=== PATIENT | female | born 1970 | race Caucasian/White ===

== ENCOUNTER 2019-03-01 11:20 | Emergency (ER) | payer BC ==
[~2019-03-01] VITALS: Ht 170.2 cm; Wt 104.5 kg
[2019-03-01 11:27] VITALS: BP 135/65; TEMP 98.7
[2019-03-01 12:34] LABS: BASO # 0.1 (0.0-0.2); BASO % 0.6 % (0.0-2.0); EOS # 0.3 (0.0-0.7); EOS % 3.6 % (0-4.0); GRAN # 5.3 (1.4-6.5); GRAN % 56.8 % (42.2-75.2); HEMATOCRIT 40.4 % (37.0-47.0); HEMOGLOBIN 13.6 g/dl (12.5-16.0); LYMPH # 2.7 (1.2-3.4); LYMPH % 29.3 % (20.0-51.0); MEAN CELL VOLUME 94 fl (80.0-100.0); MEAN CORPUSCULAR HEMOGLOBIN 32 pg (27.0-31.0); MEAN CORPUSCULAR HGB CONC 34 g/dl (33.0-37.0); MEAN PLATELET VOLUME 8.3 fl (7.4-10.4); MONO # 0.9 (0.1-0.6); MONO % 9.3 % (1.7-9.3); PLATELET COUNT 349 K/mm3 (130-400); RED BLOOD COUNT 4.31 M/mm3 (4.10-5.30); REDCELL DISTRIBUTION WIDTH-CV 13.4 % (11.5-14.5)
[2019-03-01 12:41] LABS: ALBUMIN 3.8 gm/dL (3.5-5.0); BILIRUBIN,TOTAL 0.3 mg/dL (0.0-1.0); C-REACTIVE PROTEIN 2.8 mg/dL (0.0-0.9); CALCIUM 8.9 mg/dL (8.4-10.2); CREATININE, serum 0.64 (0.52-1.25); POTASSIUM 4.2 mmol/L (3.4-5.0); TOTAL PROTEIN 7.1 gm/dL (6.4-8.2)
[2019-03-01 13:16] LABS: ERYTHROCYTE SEDIMENTATION RATE 18 mm/hr (0-20)
[2019-03-01] MEDS ORDERED: DILAUDID 2MG TAB2 MG PO (14:00)
[2019-03-01 14:14] VITALS: PULSE 93
== END 2019-03-01 14:14 | disposition home or self-care (01) ==
LOC: COL.ER 11:20
PROVIDERS: Emergency Medicine
DX: L97.919 Non-pressure chronic ulcer of unspecified part of right lower leg with unspecified severity (principal)
CPT/HCPCS: J1170; J1885

== ENCOUNTER 2019-03-08 14:42 | Inpatient (IN) | payer BC ==
[~2019-03-08] VITALS: Ht 170.2 cm; Wt 111.0 kg
[~2019-03-08 14:42] MED LIST: DILAUDID 2MG TAB2 MG PO
[2019-03-08 16:12] LABS: BASO # 0.1 (0.0-0.2); BASO % 0.4 % (0.0-2.0); EOS # 0.4 (0.0-0.7); EOS % 2.8 % (0-4.0); GRAN % 61.7 % (42.2-75.2); HEMATOCRIT 41.1 % (37.0-47.0); HEMOGLOBIN 13.7 g/dl (12.5-16.0); LYMPH # 3.5 (1.2-3.4); LYMPH % 27.3 % (20.0-51.0); MEAN CELL VOLUME 94 fl (80.0-100.0); MEAN CORPUSCULAR HEMOGLOBIN 31 pg (27.0-31.0); MEAN CORPUSCULAR HGB CONC 33 g/dl (33.0-37.0); MEAN PLATELET VOLUME 8.4 fl (7.4-10.4); MONO % 7.5 % (1.7-9.3); PLATELET COUNT 393 K/mm3 (130-400); RED BLOOD COUNT 4.37 M/mm3 (4.10-5.30); REDCELL DISTRIBUTION WIDTH-CV 13.2 % (11.5-14.5)
[2019-03-08 17:29] LABS: ALBUMIN 4.1 gm/dL (3.5-5.0); BILIRUBIN,TOTAL 0.3 mg/dL (0.0-1.0); C-REACTIVE PROTEIN 2.7 mg/dL (0.0-0.9); CALCIUM 9.1 mg/dL (8.4-10.2); CREATININE, serum 0.64 (0.52-1.25); POTASSIUM 4.2 mmol/L (3.4-5.0); TOTAL PROTEIN 7.6 gm/dL (6.4-8.2)
--- NOTE | 2019-03-08 17:54 | NUR ---
Vancomycin Initial Dosing Pharmacy Note Ordering provider: Jorje Andres MD Indication/duration: skin/soft tissue infection, 7 days Relevant comorbidities: h/o recent vein procedure LABS: SCr 0.64, CrCl~113, GFR 99 Recommendation: Will continue Vancomycin 1 gm IV q8h. Pharmacy will check Vancomycin trough on 03/10/19 and continue to monitor. Loading dose: 1 grams Maintenance dose: 1 gram every 8 hours Trough goal: 10-15 ug/mL
[2019-03-08 18:05] VITALS: PULSE 79; TEMP 98.1
[2019-03-08] MEDS ORDERED: TYLENOL 8 HR PO (19:02)
[2019-03-08] MEDS ORDERED: PERCOCET 325 MG1 TAB PO (19:02)
[2019-03-08] MEDS ORDERED: IBU800 M1 PO (19:03)
[2019-03-08] MEDS ORDERED: PRIL40 PO (19:03)
--- NOTE | 2019-03-08 19:35 | NUR ---
Pt. sitting up in bed at this time. Pt. is A&O3, assessment complete. INT to rt. hand patent. Pt. reported pain at a 8 on pain scale, gave pain meds. Pt. denies needs, call light within reach.
[2019-03-08 19:42] VITALS: BP 137/80; PULSE 81; TEMP 97.7
[2019-03-08 23:11] VITALS: BP 143/80; PULSE 86; TEMP 98
[2019-03-09] VITALS (12 sets, daily range): BP systolic 98–136; BP diastolic 56–77; PULSE 78–95; TEMP 97.9–98.5
[2019-03-09 07:23] LABS: CALCIUM 8.6 mg/dL (8.4-10.2); CREATININE, serum 0.68 (0.52-1.25)
[2019-03-09 07:28] LABS: BASO % 0.4 % (0.0-2.0); EOS # 0.4 (0.0-0.7); EOS % 3.7 % (0-4.0); GRAN # 6.1 (1.4-6.5); GRAN % 62.2 % (42.2-75.2); HEMATOCRIT 37.5 % (37.0-47.0); HEMOGLOBIN 12.3 g/dl (12.5-16.0); LYMPH # 2.5 (1.2-3.4); LYMPH % 25.9 % (20.0-51.0); MEAN CELL VOLUME 95 fl (80.0-100.0); MEAN CORPUSCULAR HEMOGLOBIN 31 pg (27.0-31.0); MEAN CORPUSCULAR HGB CONC 33 g/dl (33.0-37.0); MEAN PLATELET VOLUME 8.5 fl (7.4-10.4); MONO # 0.7 (0.1-0.6); MONO % 7.5 % (1.7-9.3); PLATELET COUNT 358 K/mm3 (130-400); RED BLOOD COUNT 3.94 M/mm3 (4.10-5.30); REDCELL DISTRIBUTION WIDTH-CV 13.4 % (11.5-14.5)
[2019-03-09 07:29] LABS: PROTHROMBIN TIME 11.5 SECONDS (9.7-12.8)
--- NOTE | 2019-03-09 08:30 | NUR ---
Dr Barrios here to see patient, see orders.
--- NOTE | 2019-03-09 10:00 | NUR ---
Patient alert and oriented, answers questions appropriately. See assessment. RLE with edema, redness, necrotic areas noted. Pulses palpable to BLE. C/o 9/10 pain to RLE with activity, 6/10 at rest. FWB. No other c/o at this time.
--- NOTE | 2019-03-09 10:39 | NUR ---
Initial visit; Patient thanked Brine Tank Separator Operator for looking in on her and offering God's blessings.
--- NOTE | 2019-03-09 11:20 | NUR ---
Dr Alba here to see patient, see orders.
--- NOTE | 2019-03-09 11:30 | NUR ---
Extruder Operator Horizontal attended rounds with the team. Patient to have ultra sound ordered. SW met with patient to discuss discharge planning. Patient lives in [place] with her , Gopal (ph#[phone]). Patient sees Dr. Alex Callaway in [place] for primary care. Patient states she travels over an hour to see Dr. Callaway and that this is her preference. Patient obtains medications from [facility] with no difficulties. Patient is employed at [employer] in [place]. Patient does not have any DME and is independent with ADLS. Patient does not have Advance Directives and is not interested in setting AD up at this time. Patient plans to return home upon discharge.
--- NOTE | 2019-03-09 11:36 | NUR ---
Final Finisher Forging Dies was contacted by BRUCE Robb who advised she put in a Social Service Consult as patient may require outpatient IV antibiotics upon discharge. SW to continue to follow.
--- NOTE | 2019-03-09 14:50 | NUR ---
Patient to surgery at this time, Adebayo POTTERY DECORATION DESIGNER given patient report.
--- NOTE | 2019-03-10 03:02 | NUR ---
Patient's pain not under control this shift. Noted to cry and state pain is 9/10 frequently. Patient getting 8mg morphine IV every 2 hours and 10/325mg of Percocet every 4 hours. Patient calls for the pain medication as often as she can have it. FARNAZ Hoyt notified about uncontrolled pain and ordered to try Tramadol 50mg once. Patient stated she fell asleep and was unsure if this was effective or not. Patient stated she was educated on day shift to "stay on top of the pain medication overnight" and has set an alarm to remind her to call for pain medication. States getting up to the commode makes the pain almost unbearable. Lowest scoring pain rating so far this shift has been 6/10. at bedside. IV antibiotics given per orders. IV to left hand infiltrated with NS flush at about 1999. New IV started in right wrist. Dressing to right calf and frances clean, dry, and intact. Attempted to apply ice, but patient stated the pressure on the wound was too intense. Will continue to monitor patient and attempt pain relief.
[2019-03-10 04:00] VITALS: BP 121/58; PULSE 62; TEMP 98
[2019-03-10 07:40] LABS: BASO % 0.4 % (0.0-2.0); EOS # 0.3 (0.0-0.7); EOS % 3.2 % (0-4.0); GRAN % 63.9 % (42.2-75.2); HEMATOCRIT 38.2 % (37.0-47.0); HEMOGLOBIN 12.5 g/dl (12.5-16.0); LYMPH # 2.2 (1.2-3.4); LYMPH % 23.7 % (20.0-51.0); MEAN CELL VOLUME 95 fl (80.0-100.0); MEAN CORPUSCULAR HEMOGLOBIN 31 pg (27.0-31.0); MEAN CORPUSCULAR HGB CONC 33 g/dl (33.0-37.0); MEAN PLATELET VOLUME 8.3 fl (7.4-10.4); MONO # 0.8 (0.1-0.6); MONO % 8.5 % (1.7-9.3); PLATELET COUNT 335 K/mm3 (130-400); RED BLOOD COUNT 4.02 M/mm3 (4.10-5.30); REDCELL DISTRIBUTION WIDTH-CV 13.2 % (11.5-14.5)
[2019-03-10 07:55] LABS: CALCIUM 8.7 mg/dL (8.4-10.2); CREATININE, serum 0.72 (0.52-1.25); POTASSIUM 4.1 mmol/L (3.4-5.0)
[2019-03-10 08:00] VITALS: BP 114/51; PULSE 93; TEMP 97.9
--- NOTE | 2019-03-10 08:00 | NUR ---
UPON ENTRY TO THE ROOM THIS MORNING THE PATIENT IS RESTING IN BED WITH HER RIGHT LEG ELEVATED ON TWO PILLOWS. PRESENT AT THE BEDSIDE. PATIENT IS A&OX4. VSS. BOWEL SOUNDS ACTIVE ALL FOUR QUADRANTS. PATIENT TOLERATING DIET WITHOUT ANY COMPLAINTS OF N/V. POSITIVE PEDAL PULSES EQUAL BILATERALLY. CAP REFILL <3 SECONDS. CMS INTACT. RLE DRESSED WITH GAUZE, KERLIX AND TAPE AND IS CD&I. 1+ PITTING-EDEMA TO RIGHT FOOT. INT TO RIGHT WRIST. CALL LIGHT WITHIN REACH. PATIENT DENIES ANY NEEDS AT THIS TIME. ICE PACKS IN PLACE TO RLE.
[2019-03-10 08:31] LABS: ERYTHROCYTE SEDIMENTATION RATE 20 mm/hr (0-20)
--- NOTE | 2019-03-10 09:50 | NUR ---
WOUND CARE CONSULT CALLED TO WOUND CARE CLINIC. NO ORDERS GIVEN AT THIS TIME.
--- NOTE | 2019-03-10 10:38 | NUR ---
Audio Visual Equipment Rental Clerk attended rounds with the team. Patient to continue pain medications and antibiotics. SW to continue to follow.
[2019-03-10 12:30] VITALS: BP 130/94; PULSE 88; TEMP 98.1
--- NOTE | 2019-03-10 13:46 | NUR ---
Assisted Shereen BARRERA with pateint care from 0630 to 1345. Patient in bed playing on phone. Call light within reach. Patient is alert and oriented x3.
[2019-03-10 15:09] VITALS: BP 111/63; PULSE 90; TEMP 98
--- NOTE | 2019-03-10 19:07 | NUR ---
BEDSIDE SHIFT REPORT GIVEN TO BRUCE CORTES.
[2019-03-10 20:05] VITALS: BP 107/52; PULSE 90; TEMP 97.8
[2019-03-11] VITALS (7 sets, daily range): BP systolic 100–131; BP diastolic 50–64; PULSE 79–104; TEMP 97.4–98.4
--- NOTE | 2019-03-11 05:58 | NUR ---
Patient continues to receive PO and IV pain medication frequently throughout the night. Pain appears to be a little more manageable for patient this shift. Dressing to right lower leg clean, dry, and intact. INT site to right wrist infiltrated and was noted to be swollen and red. New 22G started in left hand after one unsuccessful attempt. Patient continues to complain of discomfort when INT is touched or any medication is administered through it. This nurse pushes all medications very slow as patient states this helps with the discomfort. at bedside. Patient stands and pivots to the commode and can't bear weight d/t pain on the right leg. Will report off to day shift nurse.
[2019-03-11 07:20] LABS: BASO % 0.3 % (0.0-2.0); CALCIUM 8.4 mg/dL (8.4-10.2); CREATININE, serum 0.75 (0.52-1.25); EOS # 0.4 (0.0-0.7); EOS % 4.1 % (0-4.0); GRAN # 5.6 (1.4-6.5); GRAN % 58.5 % (42.2-75.2); HEMATOCRIT 35.1 % (37.0-47.0); HEMOGLOBIN 11.4 g/dl (12.5-16.0); LYMPH # 2.7 (1.2-3.4); LYMPH % 28.1 % (20.0-51.0); MEAN CELL VOLUME 96 fl (80.0-100.0); MEAN CORPUSCULAR HEMOGLOBIN 31 pg (27.0-31.0); MEAN CORPUSCULAR HGB CONC 33 g/dl (33.0-37.0); MONO # 0.8 (0.1-0.6); MONO % 8.7 % (1.7-9.3); PLATELET COUNT 302 K/mm3 (130-400); RED BLOOD COUNT 3.65 M/mm3 (4.10-5.30); REDCELL DISTRIBUTION WIDTH-CV 13.2 % (11.5-14.5)
--- NOTE | 2019-03-11 08:00 | NUR ---
SEE MORNING SHIFT ASSESSMENT.
--- NOTE | 2019-03-11 11:25 | NUR ---
Cook Cashier Food Prep attended rounds with the team. Patient states she is in significant pain when dressings are changed for her wound. SW to continue to follow.
--- NOTE | 2019-03-11 12:41 | NUR ---
DR. SCHROEDER CALLED AND MESSAGE LEFT FOR ID CONSULT.
--- NOTE | 2019-03-11 12:44 | NUR ---
WOUND CARE CLINIC CALLED AND NOTIFIED THAT THE HOSPITALIST WOULD LIKE FOR THE PATIENTS WOUND TO BE SEEN BY WOUND CARE BEFORE THE WEEKEND. VIRGINIE FLOWERS WILL BE BY TO SEE THE PATIENT THIS AFTERNOON.
--- NOTE | 2019-03-11 13:42 | NUR ---
Assisted Shereen BARRERA with medications from 0730 to 1330. Patient is currently getting PICC line placed. Gave report to Shereen BARRERA.
--- NOTE | 2019-03-11 20:00 | NUR ---
PATIENTS RLE DRESSING REMOVED AND CLEANED WITH STERILE WATER AND GAUZE. RIGHT LEFT LEG RE-DRESSED WITH VASELINE, VASELINE GAUZE, 4X4'S, KERLIX, SOFT ROLL AND COBAN. PATIENT GIVEN PRN IV DILAUDID PRIOR TO DRESSING CHANGE. PATIENT TOLERATED WELL. REPORT GIVEN TO BRUCE MCINTOSH.
[2019-03-12] VITALS (7 sets, daily range): BP systolic 103–130; BP diastolic 54–74; PULSE 81–98; TEMP 97.7–98.3
[2019-03-12 06:22] LABS: BASO % 0.2 % (0.0-2.0); GRAN # 7.1 (1.4-6.5); GRAN % 76.3 % (42.2-75.2); HEMOGLOBIN 11.9 g/dl (12.5-16.0); LYMPH # 1.7 (1.2-3.4); LYMPH % 18.1 % (20.0-51.0); MEAN CELL VOLUME 94 fl (80.0-100.0); MEAN CORPUSCULAR HEMOGLOBIN 32 pg (27.0-31.0); MEAN CORPUSCULAR HGB CONC 33 g/dl (33.0-37.0); MEAN PLATELET VOLUME 8.7 fl (7.4-10.4); MONO # 0.5 (0.1-0.6); MONO % 5.1 % (1.7-9.3); PLATELET COUNT 312 K/mm3 (130-400); RED BLOOD COUNT 3.78 M/mm3 (4.10-5.30); REDCELL DISTRIBUTION WIDTH-CV 12.9 % (11.5-14.5)
[2019-03-12 06:34] LABS: HEMATOCRIT 35.7 % (37.0-47.0)
[2019-03-12 06:38] LABS: CALCIUM 9.1 mg/dL (8.4-10.2); CREATININE, serum 0.62 (0.52-1.25); POTASSIUM 4.5 mmol/L (3.4-5.0)
--- NOTE | 2019-03-12 07:53 | NUR ---
Pt is awake and A/Ox4, sitting up in bed with . She states her pain to her right lower leg is a 7-8/10. Pt given PRN dilaudid upon request. PICC line to right upper arm is free of complications. Dressing to RLE is free of complications. Pt had previously walked in hallways with . Pt denies any other needs, will monitor.
--- NOTE | 2019-03-12 10:30 | NUR ---
Pt stating pain to RLE is not controlled. Requested PRN percocet for 10/10 pain. Attempted to give, not able to due to it would put pt over tylenol limit in 24 hrs. Given additional dose of PRN dilaudid. Pt crying in pain. Dr. Tran notified and order for Dilaudid ATHLETIC TRAINING INTERNSHIP obtained. Verified with AGUSTIN Turner.
--- NOTE | 2019-03-12 13:49 | NUR ---
Dressing removed by Dr. Lay. Wound cleaned with saline. New dressing applied: vaseline dressing + gauze + soft wrap + nicolas bandage applied.
--- NOTE | 2019-03-12 15:40 | NUR ---
Pt reports pain better controlled after dilaudid NOISE ABATEMENT ENGINEER started. Pt resting in bed. Denies any other needs.
--- NOTE | 2019-03-12 17:18 | NUR ---
Pt given PRN oxycodone upon request for 10/13 RLE pain. Pt also requested PRN tylenol for headache. Report given to BRUCE Villanueva.
[2019-03-13 04:00] VITALS: BP 108/59; PULSE 73; TEMP 98.2
--- NOTE | 2019-03-13 04:42 | NUR ---
PT SLEEPING OFF AND ON. PRN OXYCODONE FOR PAIN APPROX. Q 4 HOURS. DRESSING/NIVIA APPEARS CD&I. PT CLAIMS SHE IS ALWAYS IN PAIN.
--- NOTE | 2019-03-13 06:19 | NUR ---
PT USING STAMP CLERK FAIRLY FREQUENTLY DURING THE NIGHT. PT TAKING OXYCODONE Q 6 HRS. DRESSING/NIVIA TO RLE APPEARS CD&I.
[2019-03-13 06:51] LABS: BASO # 0.1 (0.0-0.2); BASO % 0.3 % (0.0-2.0); EOS # 0.1 (0.0-0.7); EOS % 0.5 % (0-4.0); HEMOGLOBIN 11.5 g/dl (12.5-16.0); LYMPH # 3.9 (1.2-3.4); LYMPH % 25.4 % (20.0-51.0); MEAN CELL VOLUME 96 fl (80.0-100.0); MEAN CORPUSCULAR HEMOGLOBIN 32 pg (27.0-31.0); MEAN CORPUSCULAR HGB CONC 33 g/dl (33.0-37.0); MEAN PLATELET VOLUME 8.9 fl (7.4-10.4); MONO # 1.1 (0.1-0.6); MONO % 7.3 % (1.7-9.3); PLATELET COUNT 330 K/mm3 (130-400); RED BLOOD COUNT 3.65 M/mm3 (4.10-5.30); REDCELL DISTRIBUTION WIDTH-CV 13.3 % (11.5-14.5)
[2019-03-13 07:03] LABS: ALBUMIN 3.7 gm/dL (3.5-5.0); BILIRUBIN,TOTAL 0.2 mg/dL (0.0-1.0); CALCIUM 9.1 mg/dL (8.4-10.2); CREATININE, serum 0.7 (0.52-1.25); POTASSIUM 3.8 mmol/L (3.4-5.0); TOTAL PROTEIN 6.8 gm/dL (6.4-8.2)
[2019-03-13 07:23] VITALS: BP 103/54; PULSE 85; TEMP 98.6
--- NOTE | 2019-03-13 10:11 | NUR ---
Vancomycin Follow-up Pharmacy Note Current regimen: Vancomcyin 1 gm IV [id number] 03/11/19 Vancomycin trough: 15.15 (03/10/19) Adjustments: Will restart Vancomcyin 1 gm IV q8h. Pharmacy will recheck Vancomycin trough on 03/14/19 and continue to monitor.
[2019-03-13 11:33] VITALS: BP 115/65; PULSE 84; TEMP 98.5
--- NOTE | 2019-03-13 12:30 | NUR ---
Patients dressing has been changed. Dr Tran seen the wounds and documented them. Patient has a softball sized open area to the top of her frances, with several blisters surrounding. The large wound is open and oozing orange/yellow drianage. She also has a golfball size wound to her inner right calf, it is also bilstering and oozing orangish clear drainage. She has a few blisters that are still closed but raised. Wound dressed with vaseline, xeroform gauze, 4x4's, kerlix and acewrap placed to wounds. Wounds were cleaned with saline before placing dressing to them. Patients helped with removing the dressing. Patient has been trying to have a bowel movement with very little results. No complaints of nausea. No other changes at this time. Call light within reach.
[2019-03-13 15:50] VITALS: BP 126/74; PULSE 85; TEMP 98.2
--- NOTE | 2019-03-13 19:00 | NUR ---
Patient has been doing well today. She had a few times where her pain got hard to controll but otherwise has been doing ok. Her CADDY/CADDIE SUPERVISOR is on demand dose only now and she understands that. She walked with PT this afternoon and did very well with them. Her continues to be at bedside. No other changes at this time. Call light within reach.
--- NOTE | 2019-03-13 20:01 | NUR ---
Pt. sitting up on commode at this time. Pt. is A&OX3, assessment complete. PICC to rt. upper arm patent, IV fluids infusing per orders. Pt. also has a INFORMATION SYSTEMS SUPERVISOR running per orders. Dressing to rt. lower leg CDI. Pt. reported pain at an 8 on pain scale, gave pain meds per orders. Pt. denies further needs, call light within reach.
[2019-03-13 20:30] VITALS: BP 118/64; PULSE 95; TEMP 98.1
[2019-03-13 23:52] VITALS: BP 102/55; PULSE 80; TEMP 97.9
[2019-03-14] VITALS (7 sets, daily range): BP systolic 94–130; BP diastolic 55–85; PULSE 76–94; TEMP 97.7–98.2
[2019-03-14 06:48] LABS: BASO # 0.1 (0.0-0.2); BASO % 0.3 % (0.0-2.0); EOS % 0.2 % (0-4.0); GRAN # 12.5 (1.4-6.5); GRAN % 72.8 % (42.2-75.2); HEMATOCRIT 34.4 % (37.0-47.0); HEMOGLOBIN 11.2 g/dl (12.5-16.0); LYMPH # 3.2 (1.2-3.4); LYMPH % 18.7 % (20.0-51.0); MEAN CELL VOLUME 96 fl (80.0-100.0); MEAN CORPUSCULAR HEMOGLOBIN 31 pg (27.0-31.0); MEAN CORPUSCULAR HGB CONC 33 g/dl (33.0-37.0); MONO # 1.3 (0.1-0.6); MONO % 7.7 % (1.7-9.3); PLATELET COUNT 309 K/mm3 (130-400); RED BLOOD COUNT 3.58 M/mm3 (4.10-5.30); REDCELL DISTRIBUTION WIDTH-CV 13.2 % (11.5-14.5)
[2019-03-14 06:57] LABS: CALCIUM 8.8 mg/dL (8.4-10.2); CREATININE, serum 0.68 (0.52-1.25)
--- NOTE | 2019-03-14 08:00 | NUR ---
PATIENT SITTING UP IN BED WITH PRESENT AT THE BEDSIDE. PATIENT IS A&OX4. VSS. BOWEL SOUNDS ACTIVE ALL FOUR QUADRANTS. PATIENT TOLERATING DIET WITHOUT ANY COMPLAINTS OF N/V. POSITIVE PEDAL PULSES EQUAL BILATERALLY. DRAINAGE PRESENT ON RIGHT LOWER EXTREMITY DRESSING. PICC LINE IN PLACE. APPLICATION DEVELOPMENT DIRECTOR INFUSING TO PICC LINE. SEE MORNING SHIFT ASSESSMENT. CALL LIGHT WITHIN REACH. PATIENT DENIES ANY OTHER NEEDS AT THIS TIME.
--- NOTE | 2019-03-14 11:07 | NUR ---
MEHRAN met with the patient and the patient's , Gopal, to review discharge plan and to discuss PT's recommendation of needing a walker for home and a wheelchair for in the community. MEHRAN explained how insurance only covers for one or the other. The patient reports that she would prefer to private pay for the walker and bill insurance for a wheelchair. MEHRAN presented and explained the Patient Choice Form for DME to the patient. The patient chose [facility]. Patient Choice Form signed by the patient and she was provided a copy. MEHRAN contacted and faxed the wheelchair order to Angelina at [facility]. MEHRAN to continue to follow.
--- NOTE | 2019-03-14 15:15 | NUR ---
Vishal, with [facility], came to deliver the wheelchair. Vishal informed MEHRAN that the patient and her have now changed their minds and do not want to move forward with getting the wheelchair at this time. They would like to go to their follow up appointments and then decide if they want to get the wheelchair. MEHRAN to continue to follow.
--- NOTE | 2019-03-14 17:05 | NUR ---
PATIENTS RIGHT LEG DRESSING REMOVED. WOUND CLEANSED WITH STERILE WATER AND GAUZE. PETROLEUM JELLY APPLIED TO WOUND BED AND COVERED WITH VASELINE GAUZE, 4X4 GAUZE, KERLIX, SOFT ROLL AND COBAN. PATIENT TOLERATED WELL.
--- NOTE | 2019-03-14 19:25 | NUR ---
REPORT GIVEN TO BRUCE LYONS.
--- NOTE | 2019-03-14 20:49 | NUR ---
ASSESSMENT COMPLETE. DRSG RLE CDI. DENIES NEEDS AT THIS TIME.
[2019-03-15 03:52] VITALS: BP 92/48; PULSE 78; TEMP 97.8
[2019-03-15 06:53] LABS: CALCIUM 8.5 mg/dL (8.4-10.2); CREATININE, serum 0.69 (0.52-1.25); POTASSIUM 4.2 mmol/L (3.4-5.0)
[2019-03-15 07:13] LABS: BASO # 0.1 (0.0-0.2); BASO % 0.4 % (0.0-2.0); EOS # 0.1 (0.0-0.7); EOS % 0.4 % (0-4.0); GRAN % 64.5 % (42.2-75.2); HEMOGLOBIN 10.5 g/dl (12.5-16.0); LYMPH # 3.4 (1.2-3.4); LYMPH % 24.6 % (20.0-51.0); MEAN CELL VOLUME 98 fl (80.0-100.0); MEAN CORPUSCULAR HEMOGLOBIN 32 pg (27.0-31.0); MEAN CORPUSCULAR HGB CONC 32 g/dl (33.0-37.0); MEAN PLATELET VOLUME 9.1 fl (7.4-10.4); MONO # 1.3 (0.1-0.6); MONO % 9.7 % (1.7-9.3); PLATELET COUNT 296 K/mm3 (130-400); RED BLOOD COUNT 3.33 M/mm3 (4.10-5.30); REDCELL DISTRIBUTION WIDTH-CV 13.4 % (11.5-14.5)
[2019-03-15 07:16] LABS: HEMATOCRIT 32.5 % (37.0-47.0)
[2019-03-15 07:27] VITALS: BP 120/66; PULSE 84; TEMP 97.6
[2019-03-15] MEDS ORDERED: DIFLUCAN150 MG PO (07:34)
--- NOTE | 2019-03-15 08:00 | NUR ---
PATIENT IS RESTING IN BED THIS MORNING WITH HER PRESENT AT THE BEDSIDE. PATIENT IS A&OX4. VSS. BOWEL SOUNDS ACTIVE ALL FOUR QUADRANTS. PATIENT TOLERATING DIET WITHOUT ANY COMPLAINTS OF N/V. POSITIVE PEDAL PULSES EQUAL BILATERALLY. CAP REFILL <3 SECONDS. CMS INTACT. PICC LINE TO RUE. CALL LIGHT WITHIN REACH. PATIENT DENIES ANY NEEDS AT THIS TIME.
[2019-03-15] MEDS ORDERED: PREDNISONE20 MG PO (09:43)
[2019-03-15] MEDS ORDERED: NICODERM C21 MG/PATC TD (09:52)
[2019-03-15] MEDS ORDERED: NEURONTIN300 MG/CAP PO (09:57)
[2019-03-15] MEDS ORDERED: SENNA-S 50 MG-81 TAB PO (09:58)
[2019-03-15] MEDS ORDERED: OXYCONTIN60 MG PO (09:58)
[2019-03-15] MEDS ORDERED: MIRALAX238G PO (09:58)
--- NOTE | 2019-03-15 10:56 | NUR ---
The patient is to discharge back home with her today, 03/15. MEHRAN followed back up with the patient and her about the wheelchair. The patient states that the wheelchair was too expensive with insurance and would now prefer the FWW. The patient requested that MEHRAN contact [facility] [facility] and [facility] to inquire their prices. MEHRAN contacted all three pharmacies. [facility] [facility] do not have FWWs and [facility] does not bill insurance. MEHRAN informed the patient and her of this. The patient reports that she would just like to pursue with getting the walker at [facility]. MEHRAN contacted and faxed the FWW order to Angelina at [facility]. The patient was also interested in applying for a handicap accessible placard. NELLY Hale, completed form and MEHRAN provided form to the patient. No additional needs at this time.
[2019-03-15 12:00] VITALS: BP 119/57; PULSE 91
[2019-03-15] MEDS ORDERED: VFEND 200MG200 MG PO (14:36)
--- NOTE | 2019-03-15 14:37 | NUR ---
Vishal, with [facility], delivered the FWW to the patient's room.
--- NOTE | 2019-03-15 18:00 | NUR ---
RLE DRESSING REMOVED. WOUND BED CLEANSED WITH STERILE WATER AND GAUZE. PETROLEUM JELLY APPLIED TO WOUND AND COVERED WITH VASELINE GAUZE, 4X4 GAUZE, KERLIX, SOFT ROLL AND COBAN. PATIENT TOLERATED WELL. DISCHARGE INSTRUCTIONS REVIEWED WITH PATIENT AND . ALL QUESTIONS ANSWERED. PATIENT PERSONAL BELONGINGS GATHERED.
--- NOTE | 2019-03-15 19:00 | NUR ---
PATIENT TAKEN TO PERSONAL VEHICLE VIA WHEELCHAIR BY SURGICAL STAFF. PATIENT DISCHARGED.
[2019-03-18 02:14] LABS: ANA SCREEN with REFLEX Negative
== END 2019-03-15 19:00 | disposition home or self-care (01) | DRG 580 ==
LOC: COL.ER 14:42 → SURG 16:26
PROVIDERS: Emergency Medicine; Family Medicine; Nurse Practitioner Family; Physician Assistant; Surgery; ADMIT Internal Medicine
PROC: 0JDN0ZZ Extraction of Right Lower Leg Subcutaneous Tissue and Fascia, Open Approach (ICD-10-PCS; principal; 2019-03-09 15:00)
PROC: 02HV33Z Insertion of Infusion Device into Superior Vena Cava, Percutaneous Approach (ICD-10-PCS; 2019-03-11)
DX: L88 Pyoderma gangrenosum (principal); I87.311 Chronic venous hypertension (idiopathic) with ulcer of right lower extremity; I82.811 Embolism and thrombosis of superficial veins of right lower extremity; L03.115 Cellulitis of right lower limb; M19.90 Unspecified osteoarthritis, unspecified site; D72.829 Elevated white blood cell count, unspecified; F17.210 Nicotine dependence, cigarettes, uncomplicated; Z90.711 Acquired absence of uterus with remaining cervical stump; Z88.0 Allergy status to penicillin; Z88.1 Allergy status to other antibiotic agents
CPT/HCPCS: 99222-AI; 99232-AI; 99233-AI; 99239; C1751; C1892; J1170; J1450; J1644; J1885; J2250; J2270; J2405; J2704; J3010; J3370; J7030; J7050; J7070; J7120; J7512

== ENCOUNTER → 2019-07-21 | Outpatient (CLI) | payer BC ==
[~2019-07-21] MED LIST changes: +DIFLUCAN150 MG PO; +IBU800 M1 PO; +MIRALAX238G PO; +NEURONTIN300 MG/CAP PO; +NICODERM C21 MG/PATC TD; +OXYCONTIN60 MG PO; +PERCOCET 325 MG1 TAB PO; +PREDNISONE20 MG PO; +PRIL40 PO; +SENNA-S 50 MG-81 TAB PO; +TYLENOL 8 HR PO; +VFEND 200MG200 MG PO
== END ==
LOC: COL.RAD 09:16
DX: C84.A0 Cutaneous T-cell lymphoma, unspecified, unspecified site (principal)

== ENCOUNTER → 2019-09-22 | Outpatient (CLI) | payer BC | LOC: COL.RAD 08:06 | DX: Q07.00 Arnold-Chiari syndrome without spina bifida or hydrocephalus (principal); M51.27 Other intervertebral disc displacement, lumbosacral region; M50.90 Cervical disc disorder, unspecified, unspecified cervical region; C85.90 Non-Hodgkin lymphoma, unspecified, unspecified site ==

== ENCOUNTER → 2019-12-16 | Outpatient (CLI) | payer BC | LOC: COL.VAS | DX: C86.6 Primary cutaneous CD30-positive T-cell proliferations (principal); I82.811 Embolism and thrombosis of superficial veins of right lower extremity; I82.90 Acute embolism and thrombosis of unspecified vein ==

== ENCOUNTER → 2019-12-27 | Outpatient (CLI) | payer BC | LOC: COL.RAD 07:52 | DX: C84.45 Peripheral T-cell lymphoma, not elsewhere classified, lymph nodes of inguinal region and lower limb (principal); M62.89 Other specified disorders of muscle | CPT/HCPCS: Q9967 ==

== ENCOUNTER 2020-01-03 15:24 | Emergency (ER) | payer BC ==
[~2020-01-03] VITALS: Ht 170.2 cm; Wt 108.6 kg
[2020-01-03 16:53] LABS: BASO # 0.1 (0.0-0.2); BASO % 0.4 % (0.0-2.0); EOS # 0.2 (0.0-0.7); EOS % 1.2 % (0-4.0); GRAN # 10.4 (1.4-6.5); GRAN % 74.4 % (42.2-75.2); HEMATOCRIT 43.5 % (37.0-47.0); HEMOGLOBIN 14.2 g/dl (12.5-16.0); LYMPH # 2.5 (1.2-3.4); LYMPH % 17.5 % (20.0-51.0); MEAN CELL VOLUME 88 fl (80.0-100.0); MEAN CORPUSCULAR HEMOGLOBIN 29 pg (27.0-31.0); MEAN CORPUSCULAR HGB CONC 33 g/dl (33.0-37.0); MONO # 0.9 (0.1-0.6); MONO % 6.1 % (1.7-9.3); PLATELET COUNT 444 K/mm3 (130-400); RED BLOOD COUNT 4.95 M/mm3 (4.10-5.30); REDCELL DISTRIBUTION WIDTH-CV 13.3 % (11.5-14.5)
[2020-01-03 16:58] LABS: INR 1.3 (0.8-3.0); PROTHROMBIN TIME 14.6 SECONDS (9.7-12.8)
[2020-01-03 17:05] LABS: ALBUMIN 4.4 gm/dL (3.5-5.0); BILIRUBIN,TOTAL 0.6 mg/dL (0.0-1.0); CALCIUM 9.3 mg/dL (8.4-10.2); CREATININE, serum 0.53 (0.52-1.25); POTASSIUM 3.6 mmol/L (3.4-5.0); TOTAL PROTEIN 7.9 gm/dL (6.4-8.2)
[2020-01-03 17:56] VITALS: BP 120/74; PULSE 80; TEMP 98.4
== END 2020-01-03 17:58 | disposition home or self-care (01) ==
LOC: COL.ER 15:24
PROVIDERS: Emergency Medicine
DX: M54.5 Low back pain (principal); M62.89 Other specified disorders of muscle; F17.210 Nicotine dependence, cigarettes, uncomplicated; Z85.72 Personal history of non-Hodgkin lymphomas; Z88.0 Allergy status to penicillin; Z88.1 Allergy status to other antibiotic agents; Z79.52 Long term (current) use of systemic steroids
CPT/HCPCS: J2270

== ENCOUNTER 2020-01-11 08:04 | Observation (INO) | payer BC ==
[~2020-01-11] VITALS: Ht 170.2 cm; Wt 108.5 kg
[~2020-01-11 08:04] MED LIST changes: +ASPIRIN 32325 MG/TA1 PO; +DILAUDID8 M1 PO; +MIRALAX PA17 GM/Dose PO; +MOTRIN 600600 MG/TAB PO; +MS CONTIN 660 MG/TAB PO; +MS CONTIN100 MG PO; +PROTONIX 40MG T40 MG PO
[2020-01-11 08:29] VITALS: PULSE 103
[2020-01-11 10:15] VITALS: BP 116/84; PULSE 93
--- NOTE | 2020-01-11 11:40 | NUR ---
CALLED HOUSE FOR AN UPDATE ON PT PLACEMENT. NO ROOM YET
--- NOTE | 2020-01-11 12:17 | NUR ---
pt still in rad holding. room is being cleaned
[2020-01-11 13:14] VITALS: BP 130/76; PULSE 88; TEMP 98.6
--- NOTE | 2020-01-11 13:47 | NUR ---
[id number] was taken up to room 357 and report given to Judith.
[2020-01-11 16:26] VITALS: BP 124/55; PULSE 87; TEMP 99.1
[2020-01-11 16:39] LABS: BASO # 0.1 (0.0-0.2); BASO % 0.3 % (0.0-2.0); EOS # 0.2 (0.0-0.7); EOS % 1.1 % (0-4.0); GRAN # 11.5 (1.4-6.5); GRAN % 73.8 % (42.2-75.2); HEMATOCRIT 42.2 % (37.0-47.0); HEMOGLOBIN 13.5 g/dl (12.5-16.0); LYMPH # 2.6 (1.2-3.4); MEAN CELL VOLUME 88 fl (80.0-100.0); MEAN CORPUSCULAR HEMOGLOBIN 28 pg (27.0-31.0); MEAN CORPUSCULAR HGB CONC 32 g/dl (33.0-37.0); MEAN PLATELET VOLUME 8.9 fl (7.4-10.4); MONO # 1.2 (0.1-0.6); MONO % 7.4 % (1.7-9.3); PLATELET COUNT 417 K/mm3 (130-400); RED BLOOD COUNT 4.82 M/mm3 (4.10-5.30); REDCELL DISTRIBUTION WIDTH-CV 13.6 % (11.5-14.5)
[2020-01-11 16:48] LABS: BILIRUBIN,TOTAL 0.7 mg/dL (0.0-1.0); CALCIUM 9.1 mg/dL (8.4-10.2); CREATININE, serum 0.53 (0.52-1.25); POTASSIUM 3.7 mmol/L (3.4-5.0); TOTAL PROTEIN 7.3 gm/dL (6.4-8.2)
--- NOTE | 2020-01-11 18:19 | NUR ---
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 Pharmacy will continue to monitor and check a Vancomycin trough on 01/13/20. Loading dose: 2 grams Maintenance dose: 1.25 grams every 8 hours Trough goal: 15-20 ug/mL
[2020-01-11 18:55] VITALS: BP 111/45; PULSE 96; TEMP 99.1
--- NOTE | 2020-01-11 20:00 | NUR ---
Assessment complete. Patient is writhing in excrutiating pain of her lower back that radiates to right hip. PRN morphine 150 mg administered. Patient states she normally takes 160 mg at home. She is alert and oriented; is at bedside. Lower back biopsy site is covered with bandaid and is not draining. Will continue to monitor pain throughout the night.
--- NOTE | 2020-01-11 20:47 | NUR ---
Patient was transferred from Radiology after purulent drainage was noted on her paraspinal mass biopsy. iv placed on right hand by Seema. blood culture pending patient complained of severe chronic pain. WBC 15.5. The plan is to give abx this night.
[2020-01-11 23:21] VITALS: BP 100/54; PULSE 69; TEMP 98.7
[2020-01-12 03:02] VITALS: BP 112/62; PULSE 69; TEMP 98.1
[2020-01-12 07:14] VITALS: BP 116/59; PULSE 77; TEMP 98.1
--- NOTE | 2020-01-12 09:50 | NUR ---
MEHRAN met with the patient to discuss discharge plan. The patient lives in [place] with her , Jose C (ph#[phone]). She reports independence with ADLs and has a walker. The patient's PCP is Dr. Alex Callaway in [place] and she receives her medications at [facility]. She reports no difficulties obtaining her meds. She states that if she cannot go back to work, then she will lose her insurance at the end of February. MEHRAN discussed applying for Medicaid. The patient was interested in this. MEHRAN notified Financial Counselor, Karla. MEHRAN presented the Release of Information Forms for Medicaid to the patient. The patient signed the forms and MEHRAN emailed them back to Financial Counseling. The patient does not have a DPOA-HC and she was not interested in completing a DPOA-HC at this time. The patient plans to return home with her upon discharge. The patient informed MEHRAN of some concerns she has during stay here. MEHRAN notified her RN and attempted to contact [facility] risk management. MEHRAN left Emma a voicemail. No additional needs at this time.
--- NOTE | 2020-01-12 10:14 | NUR ---
Initial visit; Patient thanked Turning And Beading Machine Operator for stopping though declined spiritual care.
[2020-01-12 12:00] VITALS: BP 94/51; BP 94/53; PULSE 81; TEMP 97.9
--- NOTE | 2020-01-12 13:56 | NUR ---
Primary nurse was assisted with [id number] patient care by [employer] student Angeline Bernstein and [employer] instructor Rachelle Choi RN-.
[2020-01-12] MEDS ORDERED: DOXYCYCLINE HY100 MG PO (14:19)
--- NOTE | 2020-01-12 14:33 | NUR ---
Patient recieved discharge education, followup appt, discharge summarry, new order for Amoxicillin and Clavulanate. INT discontinued. Patient discharge home with .
[2020-01-12 15:22] VITALS: BP 104/53; PULSE 76; TEMP 98.2
--- NOTE | 2020-01-12 16:47 | NUR ---
patient was discharged home with Doxycycline 100mg BID. INT discontinued. patient discharged with information on followup appointment. patient discharged with .
== END 2020-01-12 16:40 | disposition home or self-care (01) ==
LOC: COL.RAD 08:04 → MEDICAL 08:04 → COL.RAD 08:15 → MEDICAL 13:15
PROVIDERS: ADMIT Student in an Organized Health Care Education/Training Program
DX: D47.Z9 Other specified neoplasms of uncertain behavior of lymphoid, hematopoietic and related tissue (principal); M87.9 Osteonecrosis, unspecified; G89.29 Other chronic pain; M54.5 Low back pain; M79.7 Fibromyalgia; M54.30 Sciatica, unspecified side; Z92.21 Personal history of antineoplastic chemotherapy; Z85.72 Personal history of non-Hodgkin lymphomas; Z92.3 Personal history of irradiation
CPT/HCPCS: G0378; J2270; J3370; J7040; J7050

== ENCOUNTER 2020-02-02 12:06 | Day surgery (SDC) | payer BC ==
[~2020-02-02] VITALS: Ht 170.2 cm; Wt 105.5 kg
[~2020-02-02 12:06] MED LIST changes: -DOLOPHINE HCL5 MG PO; -DULCOLAX TAB5 MG PO
[2020-02-02 12:56] VITALS: BP 121/60; PULSE 76; TEMP 98.6
[2020-02-02] MEDS ORDERED: DULCOLAX TAB5 MG PO (13:08)
[2020-02-02] MEDS ORDERED: DOLOPHINE HCL5 MG PO (13:09)
[2020-02-02] MEDS ORDERED: PREDNISONE20 MG PO (13:11)
--- NOTE | 2020-02-02 13:19 | NUR ---
TO RM AT 1227- CALL LIGHT IN REACH AT BEDSIDE.
[2020-02-02 16:10] VITALS: BP 112/73; PULSE 82; TEMP 98.8
[2020-02-02 16:30] VITALS: BP 113/52; PULSE 85
[2020-02-02] MEDS ORDERED: MOTRIN 600600 MG/TAB PO (16:32)
[2020-02-02 16:45] VITALS: BP 115/49; PULSE 91
--- NOTE | 2020-02-02 17:32 | NUR ---
PT RETURNED FROM PACU INTO BAY 2. PT AWAKE AND SLEEPY. DENIES AN INCREASE OR DIFFERENT PAIN OTHER THAN THE CHRONIC PAIN SHE IS IN R/T [place]. LUNGS CLEAR, DIMINISHED, HRR, BOWEL SOUNDS PRESENT. IVF PATENT AND RUNNING. DENIES NAUSEA.
--- NOTE | 2020-02-02 17:39 | NUR ---
PT DENIES PAIN OR NAUSEA AND VOMITING. VSS. PT TOLERATING PEPSI. PORT-A-CATH INCISION INTACT, NO DRAINAGE NOTED, NO REDNESS OR SWELLING NOTED. WILL CONT TO MONITOR.
--- NOTE | 2020-02-02 17:43 | NUR ---
PT DENIES PAIN, NAUSEA AND VOMITING. VSS. PORT-A-CATH WITHOUT REDNESS, SWELLING, DRAINAGE NOTED. IV DC'D TO LEFT AC. TOLERATED WELL. DISMISSAL INSTRUCTIONS GIVEN, PT DENIES QUESTIONS. PT DISMISSED TO PT VEHICLE THROUGH PT ENTRANCE. DRIVING.
== END 2020-02-02 17:00 | disposition home or self-care (01) ==
LOC: SDCO 12:06
DX: C84.A0 Cutaneous T-cell lymphoma, unspecified, unspecified site (principal); M54.41 Lumbago with sciatica, right side; G89.29 Other chronic pain; M79.7 Fibromyalgia; F17.290 Nicotine dependence, other tobacco product, uncomplicated; Z88.0 Allergy status to penicillin; E66.9 Obesity, unspecified; M19.90 Unspecified osteoarthritis, unspecified site; Z79.899 Other long term (current) drug therapy; Z79.82 Long term (current) use of aspirin; Z88.1 Allergy status to other antibiotic agents; Z20.828 Contact with and (suspected) exposure to other viral communicable diseases
CPT/HCPCS: C1788; J1644; J2405; J2704; J3010; J7120

== ENCOUNTER → 2020-02-02 | Outpatient (CLI) | payer BC ==
[~2020-02-02] MED LIST changes: +DOLOPHINE HCL5 MG PO; +DOXYCYCLINE HY100 MG PO; +DULCOLAX TAB5 MG PO
== END ==
LOC: COL.VAS 16:37
DX: Z01.810 Encounter for preprocedural cardiovascular examination (principal); C84.A0 Cutaneous T-cell lymphoma, unspecified, unspecified site; Z45.2 Encounter for adjustment and management of vascular access device

== ENCOUNTER → 2020-03-27 | Outpatient (CLI) | payer BC ==
[~2020-03-27] MED LIST changes: +DOLOPHINE HCL5 MG PO; +DULCOLAX TAB5 MG PO
== END ==
LOC: COL.RAD 10:44
DX: C85.90 Non-Hodgkin lymphoma, unspecified, unspecified site (principal); M79.81 Nontraumatic hematoma of soft tissue; Z90.710 Acquired absence of both cervix and uterus
CPT/HCPCS: Q9967

== ENCOUNTER → 2020-06-12 | Outpatient (CLI) | payer BC | LOC: COL.RAD | DX: R91.1 Solitary pulmonary nodule (principal); R59.0 Localized enlarged lymph nodes; C84.A0 Cutaneous T-cell lymphoma, unspecified, unspecified site; Z95.828 Presence of other vascular implants and grafts | CPT/HCPCS: Q9967 ==

== ENCOUNTER → 2020-09-20 | Outpatient (CLI) | payer OTHER | LOC: COL.RAD 07:01 | DX: C84.45 Peripheral T-cell lymphoma, not elsewhere classified, lymph nodes of inguinal region and lower limb (principal); C86.6 Primary cutaneous CD30-positive T-cell proliferations; Z51.0 Encounter for antineoplastic radiation therapy | CPT/HCPCS: A9585 ==

== ENCOUNTER → 2020-11-22 | Outpatient (CLI) | payer OTHER | LOC: COL.RAD 09:21 | DX: C86.6 Primary cutaneous CD30-positive T-cell proliferations (principal); C84.45 Peripheral T-cell lymphoma, not elsewhere classified, lymph nodes of inguinal region and lower limb; Z51.0 Encounter for antineoplastic radiation therapy | CPT/HCPCS: A9585 ==

== ENCOUNTER → 2021-01-28 | Outpatient (CLI) | payer OTHER | LOC: COL.RAD 10:26 | DX: C84.A0 Cutaneous T-cell lymphoma, unspecified, unspecified site (principal); R91.8 Other nonspecific abnormal finding of lung field; E27.9 Disorder of adrenal gland, unspecified | CPT/HCPCS: Q9967 ==

== ENCOUNTER → 2021-05-02 | Outpatient (CLI) | payer OTHER | LOC: COL.RAD 08:06 | DX: E27.8 Other specified disorders of adrenal gland (principal); C84.A0 Cutaneous T-cell lymphoma, unspecified, unspecified site | CPT/HCPCS: Q9967 ==

== ENCOUNTER → 2021-06-11 | Outpatient (CLI) | payer OTHER | LOC: COL.VAS 10:30 | DX: M79.89 Other specified soft tissue disorders (principal) ==

== ENCOUNTER → 2021-07-22 | Outpatient (CLI) | payer OTHER | LOC: COL.RAD 09:20 | DX: C84.A0 Cutaneous T-cell lymphoma, unspecified, unspecified site (principal); J90 Pleural effusion, not elsewhere classified; M25.562 Pain in left knee; M79.652 Pain in left thigh | CPT/HCPCS: A9575 ==

== ENCOUNTER → 2021-08-05 | Outpatient (CLI) | payer OTHER | LOC: COL.RAD 10:00 | DX: C84.A0 Cutaneous T-cell lymphoma, unspecified, unspecified site (principal); E27.9 Disorder of adrenal gland, unspecified | CPT/HCPCS: Q9967 ==

== ENCOUNTER → 2021-10-28 | Outpatient (CLI) | payer OTHER | LOC: COL.RAD 09:47 | DX: C84.A0 Cutaneous T-cell lymphoma, unspecified, unspecified site (principal) | CPT/HCPCS: Q9967 ==